=== PATIENT | female | born 1945 | race Caucasian/White ===

== ENCOUNTER 2018-12-25 06:40 | Inpatient (IN) | payer MEDICARE, OTHER ==
[2018-12-24 11:21] VITALS: BMI 21.0
[2018-12-25] MEDS ORDERED: BUPIVACAINE HCL/PF 0.5% (5MG/ML) 10 ML VIAL ONE (07:10)
[2018-12-25] MEDS ORDERED: MIDAZOLAM HCL 2 MG/2 ML SINGLE DOSE VIAL ONE (08:01)
[2018-12-25] MEDS ORDERED: ROCURONIUM BROMIDE 50 MG/5 ML VIAL ONE ×2 (08:12→09:20)
[2018-12-25] MEDS ORDERED: fentaNYL CITRATE 250 MCG/5 ML VIAL ONE (08:12)
[2018-12-25] MEDS ORDERED: PROPOFOL 20 ML ONE (08:12)
--- NOTE | 2018-12-25 08:12 | HP ---
Admitting History and Physical - Admission Chief Complaint: ascending colon mass History of Present Illness: 73 y.o.with recent diagnosis of ascending colon ca for robotic partial colectomy History Source: Patient, Family Member Limitations to Obtaining History: Language Barrier - Past Medical History Heme/Onc: Yes: Anemia - Past Surgical History Additional Past Surgical History: oophorectomy - Smoking History Smoking history: Never smoked - Alcohol/Substance Use Hx Alcohol Use: No Home Medications - Allergies Allergies/Adverse Reactions: Allergies Allergy/AdvReac Type Severity Reaction Status Date / Time aspirin Allergy "nausea/vomiting, Verified 12/25/18 06:59 bp drops" - Home Medications Home Medications: Ambulatory Orders Multivitamins [Tab-A-Vit -] 1 tab PO DAILY 12/24/18 Neomycin Sulfate 1,000 mg PO Q8H 12/24/18 metroNIDAZOLE [Metronidazole] 500 mg PO Q8H 12/24/18 Review of Systems - Review of Systems Constitutional: reports: No Symptoms Eyes: reports: No Symptoms HENT: reports: No Symptoms Neck: reports: No Symptoms Cardiovascular: reports: No Symptoms Respiratory: reports: No Symptoms Gastrointestinal: reports: Abdominal Pain (right lower quadrant), Bloating, Melena Physical Examination Vital Signs: Vital Signs Temperature 98.3 F 12/25/18 07:23 Pulse Rate 77 12/25/18 07:23 Respiratory Rate 16 12/25/18 07:23 Blood Pressure 149/73 12/25/18 07:23 O2 Sat by Pulse Oximetry (%) 100 12/25/18 07:23 Constitutional: Yes: Well Nourished Eyes: Yes: Conjunctiva Clear HENT: Yes: Normocephalic Neck: Yes: Supple Cardiovascular: Yes: Regular Rate and Rhythm Respiratory: Yes: Regular, CTA Bilaterally Gastrointestinal: Yes: Normal Bowel Sounds, Soft, Tenderness (mild RLQ) ...Rectal Exam: Yes: Deferred Renal/: Yes: WNL Musculoskeletal: Yes: WNL Extremities: Yes: WNL Integumentary: Yes: WNL Imaging - Results Cat Scan: Report Reviewed, Image Reviewed Problem List - Problems (1) Colon adenocarcinoma Assessment/Plan: Robotic partial colectomy Code(s): C18.9 - MALIGNANT NEOPLASM OF COLON, UNSPECIFIED
[2018-12-25] MEDS ORDERED: CEFOXITIN SODIUM 2 GM IVPB ONE (08:41)
[2018-12-25] MEDS ORDERED: cefOXitin SODIUM 1 GM VIAL (RESTRICTED TO ID) IVPB ONE (08:42)
[2018-12-25] MEDS ORDERED: BUPIVACAINE HCL/PF 0.5% (5MG/ML) 10 ML VIAL IJ ONE ×2 (09:18)
[2018-12-25] MEDS ORDERED: NEOSTIGMINE METHYLSULFATE 0.5 MG/ML - 10 ML MDV ONE (12:40)
[2018-12-25] MEDS ORDERED: GLYCOPYRROLATE 0.2 MG/1 ML VIAL ONE (12:46)
[2018-12-25] MEDS ORDERED: DEXAMETHASONE SOD PHOSPHATE 4 MG/1 ML VIAL ONE (12:46)
[2018-12-25] MEDS ORDERED: LIDOCAINE HCL/PF 2% SDV 5ML VIAL ONE (12:46)
[2018-12-25] MEDS ORDERED: NEOMYCIN SO4 500 MG TABLET PO SCH (13:15)
[2018-12-25] MEDS ORDERED: LACTATED RINGERS SOLUTION 1,000 ML/1,000 ML INFUS.BAG IV SCH (13:15)
[2018-12-25] MEDS ORDERED: ONDANSETRON 4 MG/2 ML VIAL IVPUSH PRN (13:19)
--- NOTE | 2018-12-25 13:19 | OP ---
<Juan Carlos Posada - Last Filed: 12/25/18 13:17> Operative Note - Note: Operative Date: 12/25/18 Pre-Operative Diagnosis: Ascending colonic mass Operation: Robotic right colectomy w/ hepatic flexure takedown, ileocolic anastamosis Post-Operative Diagnosis: Same as Pre-op Surgeon: Manish Ramos Ems Driver: Juan Carlos Posada Anesthesiologist/HEADEND TECHNICIAN: Malia Ackerman MD Anesthesia: General Specimens Removed: Right colon Estimated Blood Loss (mls): 50 Drains, Volume Out (mls): 100 (Love) Fluid Volume Replaced (mls): 1,000 Operative Report Dictated: Yes <Manish Ramos - Last Filed: 12/25/18 13:29> Operative Note - Note: Estimated Blood Loss (mls): 100
--- NOTE | 2018-12-25 13:20 | SURG ---
Surgery Aircraft Loadmaster Superintendent Note Aircraft Loadmaster Superintendent: Juan Carlos Posada PA-C Date of Service: 12/25/18 Diagnosis: Ascending colon mass Procedure: Robotic right colectomy w/ hepatic flexure takedown, ileocolic anastamosis I was present for the entirety of the operative procedure. For further detail, please refer to operative report. Visit type - Case Type Case Type: Scheduled - New patient This patient is new to me today: Yes Date on this admission: 12/25/18
[2018-12-25] MEDS ORDERED: LACTATED RINGERS SOLUTION 1,000 ML IV SCH (13:30)
[2018-12-25] MEDS ORDERED: ACETAMINOPHEN INJECTION 100 ML IVPB ONE (14:43)
[2018-12-25] MEDS ORDERED: CEFAZOLIN 1 GM/D5W 1 GM/50 ML BAG IVPB SCH (18:00)
[2018-12-25] MEDS ORDERED: cefOXitin SODIUM 1 GM/10 ML PUSH (RESTRICTED TO ID) IVPUSH SCH (18:00)
[2018-12-25] MEDS: CEFOXITIN SODIUM 1 GM in DEXTROSE 5%-WATER 100 ML IVPB SCH (18:17)
[2018-12-25] MEDS: ACETAMINOPHEN 1000 MG/100 ML VIAL (NON FORMULARY) IVPB SCH ×2 (21:10→21:18)
[2018-12-26] MEDS: ACETAMINOPHEN 1000 MG/100 ML VIAL (NON FORMULARY) IVPB SCH ×3 (01:38→07:39)
[2018-12-26] MEDS: CEFOXITIN SODIUM 1 GM in DEXTROSE 5%-WATER 100 ML IVPB SCH ×2 (01:46→09:37)
[2018-12-26] MEDS ORDERED: PT OWN MED DRAWER 7, Y5N ONE ×2 (05:22→05:36)
--- NOTE | 2018-12-26 08:02 | OP ---
DATE OF OPERATION: 12/25/2018 PROCEDURE: Robotic assisted laparoscopic right hemicolectomy. PREOPERATIVE DIAGNOSIS: Ascending colon adenocarcinoma. POSTOPERATIVE DIAGNOSIS: Ascending colon adenocarcinoma. SURGEON: Manish Ramos MD CONVEYOR SYSTEM OPERATOR: LOIDA Short ANESTHESIA: General endotracheal. FINDINGS ON PROCEDURE: This is a 73-year-old female who presents with some mild right lower quadrant pain associated with intermittent rectal bleeding and anemia for almost about a year. Colonoscopy showed a tumor of the ascending colon that biopsy reported as adenocarcinoma. Preoperative CT scan of the chest, abdomen, and pelvis revealed no metastatic disease. So, patient was advised resection of the colon , and consent was obtained after discussing the risks, benefits, and alternatives of the procedure. DESCRIPTION OF PROCEDURE: Patient was brought to the operating room and placed in supine position. General endotracheal anesthesia was administered. A Love catheter was inserted, and both arms were tucked to the side.The abdomen was prepped and draped in the usual sterile fashion. The peritoneal cavity was entered using the Veress needle technique via a left subcostal incision. Pneumoperitoneum was established. An 8-mm blunt port was inserted followed by insertion of the 3D laparoscope. The peritoneal cavity was carefully inspected and was noted to be free of inadvertent injury. Omental adhesions to the suprapubic area from previous gynecologic procedure were noted. Three 8-mm ports were inserted in a diagonal fashion from the subcostal to the symphysis pubis 7 mm away from each other. The left subcostal port was then switched in a 12-mm port to accommodate the stapling device. An assistant professor of education port using a 5 -mm optical port was inserted between the suprapubic and the left lower quadrant port and then posterior to these ports. Patient was then placed in Trendelenburg [id number] position. The robotic arms were docked and the target organ was set. The ProGrasp retractor was placed in the suprapubic port. The fenestrated bipolar was inserted at the left lower quadrant port. The EndoWrist patricia connected to monopolar cautery was inserted at the left subcostal port with a laparoscope inserted in the port at the level of the umbilicus. Afterwards, the undersigned scrubbed out to commence the console part of the procedure. The cecum was grasped with the ProGrasp retractor, retracting nikole-inferiorly to expose the right mesocolon. The ileocolic vessel was identified, and the visceral peritoneum covering the mesocolon was scored initially using the EndoWrist patricia, later switched to the vessel sealer for better hemostatic control. As soon as the artery was isolated, the artery was transected using the Endo DIANA vascular stapler. Afterwards, the dissection was carried towards the duodenum where the mesocolon was carefully dissected away from the structure. Dissection was carried towards the transverse colon after identifying the middle colic vessel. After the mesocolon was completely transected just under the colonic wall, the transverse colon to the right of the falciform ligament was transected using the Endo DIANA blue load stapling device. The attachments of the transverse colon to the omentum were carefully dissected towards the hepatic flexure using the vessel sealing device. After this was completed, attention was focused towards the cecum where the white line of Toldt was incised using the vessel sealing device towards the hepatic flexure to complete the mobilization of the right colon. The distal 8 cm of the terminal ileum was isolated and transected using the blue load Endo DIANA stapling device. The rest of the mesentery of the small bowel was transected using the vessel sealing device to complete the resection. Afterwards, a [id number] intracorporeal anastomosis was performed by initially applying V-Loc absorbable 2-0 sutures at the end of the transverse colon and about 6 cm of the terminal ileum as a stay sutures. Enterotomies of the transverse colon and the terminal ileum were using the EndoWrist patricia. The Endo DIANA blue load stapler was inserted through the enterotomies, and then fired to create the common chennel. The enterotomies were then apposed with each other using the V-Loc 2-0 absorbable sutures in continuous fashion with a full-thickness inner layer and seromuscular outer layer. After the anastomosis was completed, the suture repair was reinforced by covered it with omentum. The adhesions of the posterior abdominal wall were taken down using the EndoWrist patricia. After the anastomosis was deemed satisfactory, the hepatic gutter, the Berry's pouch as well as the right paracolic gutter were suctioned of blood. The robotic arms were undocked. The suprapubic port was enlarged to about 5 cm and a small size Hayes wound retractor was applied. The specimen was extracted using Karlie forceps. The specimen was palpated, and the tumor was noted to be about 3 cm in diameter. The right paracolic gutter was again suctioned using the pool suction. Afterwards, the suprapubic wound was closed with continuous Vicryl 0 suture for the peritoneum and continuous Vicryl 0 suture for the fascia. The skin was then closed with yeison. The wounds were covered with sterile dressing. The patient was successfully extubated and transferred to the post-anesthesia care unit in satisfactory condition. ESTIMATED BLOOD LOSS: About 100 mL. WOUND CLASS: Clean-contaminated. The patient received 2 g of cefoxitin prior to the start of the procedure. Lachelle [id number] MTDD
[2018-12-26 08:22] LABS: HEMATOCRIT 29.8 % (32.4-45.2); MCH 29.8 pg (25.7-33.7); MCHC 33.7 g/dl (32.0-36.0); MEAN CELL VOLUME 88.4 fl (80-96); MEAN PLT VOLUME 9.3 fl (7.5-11.1); PLATELET COUNT 224 K/MM3 (134-434); RBC 3.38 M/mm3 (3.60-5.2); RDW 16.2 % (11.6-15.6)
[2018-12-26 08:41] LABS: ANION GAP 7 MMOL/L (8-16); BLOOD UREA NITROGEN 4 mg/dL (7-18); CHLORIDE 105 mmol/L (98-107); CO2 29 mmol/L (21-32); CREATININE 0.6 mg/dL (0.55-1.3); GLUCOSE,RANDOM 94 mg/dL (74-106); POTASSIUM 3.8 mmol/L (3.5-5.1); SODIUM 141 mmol/L (136-145)
[2018-12-26] MEDS: ENOXAPARIN NA (PORCINE) 40 MG/0.4 ML DISP.SYRIN SQ SCH (09:37)
--- NOTE | 2018-12-26 10:00 | PN ---
Progress Note, Physician Chief Complaint: s/p robotic right hemicolectomy History of Present Illness: POD # 1 Has minimal pain Denies nausea, tolerating clear liquids - Current Medication List Current Medications: Active Medications Enoxaparin Sodium (Lovenox -) 40 mg SQ DAILY [facility] Last Admin: 12/26/18 09:37 Dose: 40 mg Lactated Ringer's (Lactated Ringers Solution) 1,000 ml in 1,000 mls @ 75 mls/ hr IV ASDIR [facility] Last Admin: 12/25/18 15:00 Dose: 575 mls Cefoxitin Sodium 1 gm/ (Dextrose) 100 mls @ 200 mls/hr IVPB Q8H-IV [facility] Stop: 12/26/18 10:29 Last Admin: 12/26/18 09:37 Dose: 200 mls/hr - Objective Vital Signs: Vital Signs Temperature 97.6 F 12/25/18 17:30 Pulse Rate 72 12/25/18 17:30 Respiratory Rate 18 12/25/18 17:30 Blood Pressure 163/74 12/25/18 17:30 O2 Sat by Pulse Oximetry (%) 96 12/25/18 23:43 Constitutional: Yes: No Distress Eyes: Yes: Conjunctiva Clear Cardiovascular: Yes: Regular Rate and Rhythm Respiratory: Yes: CTA Bilaterally Gastrointestinal: Yes: Soft, Tenderness (minimal right sided tenderness) Wound/Incision: Yes: Clean/Dry, Brittney Intact Labs: CBC, BMP 12/26/18 06:30 12/26/18 06:30 Problem List - Problems (1) Colon adenocarcinoma Assessment/Plan: Doing well OOB and ambulate, IS, & DVT prophylaxis continue clear liquids Code(s): C18.9 - MALIGNANT NEOPLASM OF COLON, UNSPECIFIED
[2018-12-26] MEDS ORDERED: ACETAMINOPHEN 1000 MG/100 ML VIAL (NON FORMULARY) IVPB PRN (10:12)
[2018-12-26] MEDS ORDERED: D5-1/2NS+20 MEQ KCL - 20 MEQ/1,000 ML INFUS.BAG IV SCH (10:15)
--- NOTE | 2018-12-26 12:26 | PN ---
Progress Note (short form) - Note Progress Note: Anesthesia post op note POD#1 s/p robotic right hemicolectomy under GA. VSS. no apparent post anesthesia complications.
[2018-12-27] MEDS ORDERED: PT OWN MED DRAWER 7, Y5N ONE (09:53)
[2018-12-27] MEDS: ENOXAPARIN NA (PORCINE) 40 MG/0.4 ML DISP.SYRIN SQ SCH (09:56)
--- NOTE | 2018-12-27 11:45 | PN ---
Progress Note (short form) - Note Progress Note: POD # 2 Passed flatus and had small BM Tolerating clears, denies nausea Afebrile, VSS Abd: soft, minimal wound tenderness AP: Doing well with good bowel function Advance to soft diet possible D/C home in am F/U labs in am. Problem List - Problems (1) Colon adenocarcinoma Code(s): C18.9 - MALIGNANT NEOPLASM OF COLON, UNSPECIFIED
[2018-12-28 06:27] VITALS: BP 125/58; PULSE 78; TEMP 98.4
[2018-12-28 07:33] LABS: BASO % 0.8 % (0-2.0); EOS % 0.4 % (0-4.5); HEMATOCRIT 28.1 % (32.4-45.2); HEMOGLOBIN 9.3 GM/dL (10.7-15.3); LYMPH % 29.2 % (8-40); MCH 29.6 pg (25.7-33.7); MCHC 33.2 g/dl (32.0-36.0); MEAN CELL VOLUME 89.1 fl (80-96); MEAN PLT VOLUME 9.7 fl (7.5-11.1); MONO % 9.7 % (3.8-10.2); NEUT % 59.9 % (42.8-82.8); PLATELET COUNT 213 K/MM3 (134-434); RBC 3.15 M/mm3 (3.60-5.2); RDW 16.5 % (11.6-15.6); WHITE BLOOD COUNT 6.1 K/mm3 (4.0-10.0)
[2018-12-28 08:01] LABS: ALBUMIN 2.6 g/dl (3.4-5.0); ALK PHOS 63 U/L (45-117); ANION GAP 5 MMOL/L (8-16); BILIRUBIN,TOTAL 0.4 mg/dL (0.2-1); BLOOD UREA NITROGEN 5 mg/dL (7-18); CALCIUM 8.4 mg/dL (8.5-10.1); CHLORIDE 107 mmol/L (98-107); CO2 29 mmol/L (21-32); CREATININE 0.5 mg/dL (0.55-1.3); GLUCOSE,RANDOM 87 mg/dL (74-106); POTASSIUM 4.2 mmol/L (3.5-5.1); SGOT/AST 35 U/L (15-37); SGPT/ALT 33 U/L (13-61); SODIUM 141 mmol/L (136-145)
--- NOTE | 2018-12-28 08:51 | PN ---
Progress Note, Physician Chief Complaint: s/p robotic right hemicolectomy History of Present Illness: POD # 3 Has minimal to no pain Denies nausea, tolerating soft diet Contnues to have bm's and flatus - Current Medication List Current Medications: Active Medications Acetaminophen (Ofirmev Injection -) 1,000 mg IVPB Q6H PRN PRN Reason: PAIN LEVEL 4 - 6 Enoxaparin Sodium (Lovenox -) 40 mg SQ DAILY [facility] Last Admin: 12/27/18 09:56 Dose: 40 mg - Objective Vital Signs: Vital Signs Temperature 98.4 F 12/28/18 04:00 Pulse Rate 78 12/28/18 04:00 Respiratory Rate 18 12/28/18 04:00 Blood Pressure 125/58 L 12/28/18 04:00 O2 Sat by Pulse Oximetry (%) 100 12/27/18 21:00 Constitutional: Yes: No Distress HENT: Yes: Normocephalic Neck: Yes: Supple Cardiovascular: Yes: Regular Rate and Rhythm Respiratory: Yes: CTA Bilaterally Gastrointestinal: Yes: Soft, Tenderness (minimal) Wound/Incision: Yes: Clean/Dry, Brittney Intact Labs: CBC, BMP 12/28/18 06:10 12/28/18 06:10 Problem List - Problems (1) Colon adenocarcinoma Assessment/Plan: Doing well, uneventful post-op course December D/C home today F/U at office in one week. Code(s): C18.9 - MALIGNANT NEOPLASM OF COLON, UNSPECIFIED
[2018-12-28] MEDS: ENOXAPARIN NA (PORCINE) 40 MG/0.4 ML DISP.SYRIN SQ SCH (13:09)
--- NOTE | 2018-12-30 13:25 | PATH ---
Surgical Pathology Report Patient Name: CHARLI PERLA Med. Rec. #: [id number] /Age/Gender: 1945 (Age: 73) / F Account: [id number] Location: [facility] MED/SURG Taken: 12/25/2018 Received: 12/25/2018 Reported: 12/30/2018 Physicians: Manish Ramos M.D. Specimen(s) Received RIGHT COLON Clinical History Right colon cancer Final Diagnosis RIGHT COLON, RIGHT HEMICOLECTOMY: INVASIVE ADENOCARCINOMA OF CECUM, MODERATELY DIFFERENTIATED, MEASURING 3.7 CM IN GREATEST DIMENSION, ARISING FROM A BACKGROUND OF TUBULAR ADENOMA. TUMOR INVADES MUSCULARIS PROPRIA. SURGICAL MARGINS ARE NEGATIVE FOR CARCINOMA. LYMPHOVASCULAR INVASION NOT IDENTIFIED. PERINEURAL INVASION NOT IDENTIFIED. FIFTEEN LYMPH NODES, NEGATIVE FOR METASTATIC CARCINOMA (0/15). PATHOLOGIC STAGE (pTNM): pT2 pN0 ALSO SEE SURGICAL PATHOLOGY CANCER CASE SUMMARY BELOW. This case was discussed with Dr. Ramos on December 30, 2018. Comments Colorectal Carcinoma :Surgical Pathology Cancer Case Summary (Based on AJCC TNM 8 th edition) Procedure _x_ Right hemicolectomy Tumor Site _x_ Cecum Tumor Size Greatest dimension (centimeters): 3.7 cm Macroscopic Tumor Perforation _x_ Not identified Histologic Type _x_ Adenocarcinoma Histologic Grade _x_ G2: Moderately differentiated Tumor Extension _x_ Tumor invades muscularis propria Margins _x_ All margins are uninvolved by invasive carcinoma, high-grade dysplasia, intramucosal adenocarcinoma, and adenoma Margins examined: proximal margin, distal margin, radial margin Treatment Effect _x_ No known presurgical therapy Lymphovascular Invasion _x_ Not identified Perineural Invasion _x_ Not identified Tumor Deposits _x_ Not identified Regional Lymph Nodes Lymph Node Examination Number of Lymph Nodes Involved: 0 Number of Lymph Nodes Examined: 15 Pathologic Stage Classification (pTNM, AJCC 8th Edition) Primary Tumor (pT) _x_ pT2: Tumor invades the muscularis propria Regional Lymph Nodes (pN) _x_ pN0: No regional lymph node metastasis Electronically Signed Jacquie Beltran M.D. Gross Description Received in formalin labeled "right colon," is a 3.5 cm in length portion of terminal ileum with an attached 14 cm in length portion of cecum and right colon. The specimen displays 2 stapled mucosal margins as well as abundant attached pericolonic adipose tissue. There is a 3.5 cm in length unremarkable vermiform appendix attached at the cecum. The serosa is santana-hannon and smooth. The mucosa displays a 3.7 x 2.8 cm santana, polypoid mass in the cecum, 1 cm from the ileocecal valve and 10.5 cm from the distal mucosal margin of resection. The mass is 3 cm from the mesenteric margin of resection. The mass invades into the muscularis propria. No definite invasion through the serosa is identified grossly. The remaining mucosa is santana with normal folds. Sectioning of the pericolonic adipose tissue reveals abundant santana lymph nodes measuring up to 0.8 cm in greatest dimension. Chief Of Field Operations sections are submitted in 22 cassettes as follows: 1-proximal mucosal margin of resection; 2-distal mucosal margin of resection; 3-shave of mesenteric margin of resection; 4-appendix; 5-8-mass; 9-uninvolved terminal ileum; 10-uninvolved distal right colon; 11-14-one bisected lymph node each; 15-20-one whole lymph node each; 21-22-three whole possible lymph nodes each. 12/28/2018 [facility]12/28/2018
== END 2018-12-28 11:51 | disposition home or self-care (01) | DRG 331 ==
LOC: JSAMEDAYSX 06:40 → J8W 17:17
PROVIDERS: ADMIT Surgery; ATTEND Surgery
PROC: 0DTF4ZZ Resection of Right Large Intestine, Percutaneous Endoscopic Approach (ICD-10-PCS; principal; 2018-12-25 08:00)
DX: C18.2 Malignant neoplasm of ascending colon (principal); D64.9 Anemia, unspecified
CPT/HCPCS: 36415; 80048; 80053; 85025; 85027; 85730; 86850; 86900; 86901; 88309-TC; 94760; J0131